=== PATIENT | female | born 1985 | race Two or more races ===

== ENCOUNTER 2025-06-11 10:17 | Emergency (ER) | payer BC ==
[~2025-06-11] VITALS: Ht 157.5 cm; Wt 61.2 kg
[2025-06-11] MEDS ORDERED: CIPROFLOX-DEXA7.5 ML OT (12:16)
[2025-06-11] MEDS ORDERED: CIPRO500 MG PO (12:16)
[2025-06-11] MEDS ORDERED: IBUPROFEN600 MG PO (12:16)
[2025-06-11] MEDS ORDERED: KETOROLAC TROMETHAMINE 60 MG VIAL IM ONE (12:30)
[2025-06-11] MEDS ORDERED: DEXAMETHASONE SODIUM PHOSPHATE 4 MG/ML VIAL IM ONE (12:30)
[2025-06-11] MEDS ORDERED: CEFTRIAXONE SODIUM 1,000 MG VIAL IM ONE (12:30)
== END 2025-06-11 13:21 | disposition home or self-care (01) ==
LOC: ER 10:17
DX: H60.8X2 Other otitis externa, left ear (principal)